=== PATIENT | female | born 1995 | race Caucasian/White ===

== ENCOUNTER 2017-01-04 18:56 | Emergency (ER) | payer OTHER ==
[~2017-01-04] VITALS: Ht 154.9 cm; Wt 59.0 kg
[~2017-01-04 18:56] MED LIST: AMOX500C2 PO; CODE118S2 PO; DEPO SHOT; NAPR-243 PO; NF-CIPDEC OT; NITR-65 PO; PHEN200T27 PO; SULF1TAB35 PO
--- NOTE | 2017-01-04 19:16 | ED Integumentary General ---
General Chief Complaint: Bite-Animal/Human/Insect Stated Complaint: BITE ON BACK OF R LEG Nursing Triage Note: Patient reports bite to R upper thigh Source: patient, family (mother and grandmother) Exam Limitations: no limitations History of Present Illness Time seen by provider: 19:16 Initial Comments 21-year-old female patient presents to the emergency department complains of a bite to the right posterior thigh and left groin. Onset 2-3 days ago. Timing/Duration: other (2-3 days) Location: extremities (right posterior thigh and left groin) Possible Cause: insect bite (possible insect bite) Modifying Factors: worse with other (worsened with palpation) Allergies and Home Medications Allergies Coded Allergies: No Known Drug Allergies (Unverified , 05/05/13) Home Medications Hydrocodone/Acetaminophen 1 Each Tablet, 1 EACH PO Q4H PRN for PAIN, #14 Ref 0 Prescribed by: MOOKIE JACKSON on 01/04/172007 Sulfamethoxazole/Trimethoprim 1 Each Tablet, 1 EACH PO BID, #20 Ref 0 Prescribed by: MOOKIE JACKSON on 01/04/172007 Constitutional: No chills, No fever, No malaise Respiratory: no symptoms reported Cardiovascular: no symptoms reported Gastrointestinal: no symptoms reported Musculoskeletal: no symptoms reported Skin: see HPI Psychiatric/Neurological: No Symptoms Reported All Other Systems Reviewed Negative Unless Noted: Yes (Negative excepted noted.) Past Xbvgoiz-Ykbhpv-Kcequn Hx Patient Social History Alcohol Use: Denies Use Recreational Drug Use: No Recent Foreign Travel: No Contact w/Someone Who Travel: No Recent Infectious Disease Expo: No Recent Hopitalizations: No Immunizations Up To Date Tetanus Booster (TDap): Less than 5yrs Seasonal Allergies Seasonal Allergies: Yes Surgeries HX Surgeries: No Respiratory Hx Respiratory Disorders: No Cardiovascular Hx Cardiac Disorders: No Neurological Hx Neurological Disorders: No Reproductive System Hx Reproductive Disorders: No Sexually Transmitted Disease: No HIV/AIDS: No Genitourinary Hx Genitourinary Disorders: No Genitourinary Disorders: Bladder Infection Gastrointestinal Hx Gastrointestinal Disorders: No Musculoskeletal Hx Musculoskeletal Disorders: No Endocrine Hx Endocrine Disorders: No HEENT HX ENT Disorders: No Cancer Hx Cancer: No Psychosocial Hx Psychiatric Problems: No Integumentary HX Skin/Integumentary Disorder: No Blood Transfusions Hx Blood Disorders: No Reviewed Nursing Assessment Reviewed/Agree w Nursing PMH: Yes Family Medical History Significant Family History: No Pertinent Family Hx Physical Exam Vital Signs Capillary Refill : Less Than 3 Seconds General Appearance: WD/WN, no apparent distress Cardiovascular: regular rate, rhythm, no murmur Respiratory: lungs clear, normal breath sounds, no respiratory distress Extremities: normal range of motion, normal capillary refill, other (3x 3 cm area of erythema, warmth, swelling, and induration right posterior proximal thigh. 3x 2 cm area of erythema, warmth, and swelling with induration in the left groin.) Neurologic/Psychiatric: alert, normal mood/affect, oriented x 3 Skin: normal color, warm/dry, other (3x 3 cm area of erythema, warmth, swelling , and induration right posterior proximal thigh. 3x 2 cm area of erythema, warmth, and swelling with induration in the left groin.) I&D #1: Site: rt posterior thigh Blade Size: 11 I & D Procedure: betadine prep, sterile drapes applied, sterile dressing applied, Wound Packing Progress 1/4 inch plain packing used. small amount of purulent drainage noted. blood loss minimal. patient tolerated the procedure well. I&D #2: Site: left groin Blade Size: 11 I & D Procedure: betadine prep, sterile drapes applied, sterile dressing applied, Wound Packing Progress 1/4 inch plain packing used. small amount of purulent drainage noted. blood loss minimal. patient tolerated the procedure well. Progress/Results/Core Measures Results/Orders Micro Results Microbiology 01/04/17 Gram Stain - Final, Complete 01/04/17 Wound Culture - Final, Complete Staphylococcus Aureus 01/04/17 Gram Stain - Final, Complete 01/04/17 Wound Culture - Final, Complete Staphylococcus Aureus My Orders Orders - MOOKIE JACKSON Ibuprofen Tablet (Motrin Tablet) (01/04/17 19:22) Morphine Injection (Morphine Injection (01/04/17 19:22) Lidocaine/Epi 1% 1:100,000 (Xylocaine /E (01/04/17 19:22) Rx-Trimeth/Sulfameth Ds Tab (Rx-Bactrim/ (01/04/17 20:42) Rx-Tramadol Hcl (Rx-Ultram) (01/04/17 20:42) Wound Culture (01/04/17 22:46) Wound Culture (01/04/17 22:46) Im/Sub-Q Injection Non-Ab Ed (01/04/17 ) Vital Signs/I&O Blood Pressure Mean: 80 Departure Communication Progress Notes Patient seen, evaluated, and incision with drainage performed. Plan for discharge to home. Impression Impression: Primary Impression: Abscess of groin, left Additional Impression: Abscess of right thigh Disposition: 01 HOME, SELF-CARE Condition: Improved Departure-Patient Inst. Decision time for Depature: 19:56 Referrals: AVINASH MEJIA (PCP) Primary Care Physician Patient Instructions: Abscess Incision and Drainage (DC) Add. Discharge Instructions: All discharge instructions reviewed with patient and/or family. Voiced understanding. medications as instructed. Tylenol Extra Strength over-the- counter as directed for pain. Ibuprofen 800 mg by mouth every 8 hours as needed for pain. Tomorrow morning remove the packing, shower with antibacterial soap, pat dry, repack the wound as instructed, and cover with gauze. Follow-up with Carina Mejia APRN at [facility] in the next 1-2 days for wound recheck. Return to the emergency department for worsened redness, pain, fever, or any other concerns. Scripts Hydrocodone/Acetaminophen (Hydrocodon -Acetaminophen 5-325) 1 Each Tablet 1 EACH PO Q4H Y for PAIN, #14 TAB 0 Refills Prov: MOOKIE JACKSON 01/04/17 Sulfamethoxazole/Trimethoprim (Bactrim Ds Tablet) 1 Each Tablet 1 EACH PO BID, #20 TAB 0 Refills Prov: MOOKIE JACKSON 01/04/17 MOOKIE JACKSON Jan 04, 2017 19:16
[2017-01-04] MEDS ORDERED: morphine INJ 10 MG/ML 1ML (SYR OR VIAL) IM STA (19:22)
[2017-01-04] MEDS ORDERED: IBUPROFEN 800 MG (MOTRIN) TAB PO STA (19:22)
[2017-01-04] MEDS ORDERED: LIDOCAINE/EPI 1%-1:100,000 (XYLOCAINE) 20ML INJ STA (19:22)
[2017-01-04] MEDS ORDERED: HYDR-3812 PO (20:08)
[2017-01-04] MEDS ORDERED: SULF1TAB35 PO (20:08)
[2017-01-04] MEDS ORDERED: RX-TRIMETH/SULFA. 160-800 MG (BACTRIM DS) TAB PPK#2 PO STA (20:42)
[2017-01-04] MEDS ORDERED: RX-TRAMADOL 50 MG (ULTRAM) TAB PPK#4 PO STA (20:42)
[2017-01-04 20:49] VITALS: BP 113/63
== END 2017-01-04 20:49 | disposition home or self-care (01) ==
LOC: EDUNIT# 18:56 → ER 18:58
DX: L02.214 Cutaneous abscess of groin (principal); L02.415 Cutaneous abscess of right lower limb
CPT/HCPCS: 87070; 87077; 87186; 87205; 96372; 99283